=== PATIENT | male | born 1970 | race Caucasian/White ===

== ENCOUNTER 2019-04-04 23:16 | Emergency (ER) | payer MEDICARE, SELFPAY ==
--- NOTE | 2019-04-04 23:18 | W.ED.GENAD ---
Discharge Plan Disposition Patient Disposition: HOME Condition: Good Discharge Details Chief Complaint: Laceration Clinical Impression: Finger laceration Primary Care Provider: Kade Hadley ED Provider: Chelita Caballero Home Meds and New Rx's Prescriptions: Continued atorvastatin [Lipitor] 80 MG tablet 1 tab PO HS RF: 0 aspirin, buffered 325 MG tablet 1 tab PO DAILY RF: 0 citalopram 20 MG tablet 1.5 tab PO DAILY RF: 0 No Action metoprolol tartrate 100 MG tablet 50 mg PO BID RF: 0 lorazepam 0.5 MG tablet 1 tab PO PRN PRNRF: 0 nitroglycerin [Nitrostat] 0.4 MG tablet, sublingual 1 tab Sublingual PRN PRNRF: 0 cyclobenzaprine 10 MG tablet 10 mg PO TID PRN PRN (Reason: Muscle Spasm) Qty: 20 RF: 0 prednisone 20 MG tablet 20 mg PO DAILY Qty: 11 RF: 0 Discharge Instructions Instructions: Finger Laceration (ED), Skin Adhesive Care (ED) Additional Instructions: Keep wound clean, dry, covered. Tylenol and ibuprofen as needed for discomfort. Please allow adhesive to come off naturally. Do not pick or pull at this. Do not apply any ointment over the adhesive. Please monitor for signs of infection including redness, warmth, drainage, increased pain, fever/chills. If these or other new/worsening symptoms arise please seek care urgently once again. Please follow-up with primary care as needed. Referrals: Kade Hadley [Primary Care Provider] - Medical Decision Making Patient is a 48-year-old wdors-odkh-[id number] male presenting today with chief complaint of laceration to the left index finger. He reports a prior to arrival he was opening a bag of popcorn with a knife when he slipped and cut his finger. Has a superficial flap laceration to the distal aspect of the left index finger approximately 8 mm in size. Wound is actively bleeding. The flap itself is pale, I advised that this may not be viable given how thin this is. We discussed options on hemostasis and closure technique. I advised that as the patient edges aligned well, this would close well with adhesive. Tetanus is up-to-date. Patient voices understanding and wishes to proceed. Procedure note: Using standard sterile technique, a tourniquet was used to allow exploration of wound to base in a bloodless field. No foreign body or debris was noted. Wound was copiously irrigated. Flap was then aligned and thin layer of adhesive was applied. Patient tolerated this well. Bleeding had stopped with removal of tourniquet. We discussed wound care in depth. We discussed signs symptoms of infection when to seek care urgently once again. Discussed care of adhesive. All other questions or concerns were addressed and they are in agreement this plan. HPI General Mode of arrival: ambulatory. Limitations to Documentation: no limitations. Information obtained by: patient, family and RN notes reviewed. History of Present Illness 48 year old M presents to the emergency department with the chief complaint of laceration left index finger, described as mild, with intensity rated at 2. Quality is described as aching, and is localized to the left and upper extremity. Patient reports no radiation. Patient started experiencing this minute(s) and it has been constant. No relieving factors improve symptom(s), No exacerbating factors reported . Patient notes no other symptoms.. Patient did receive the following treatments prior to arrival, other (pressure dressing applied) Related Data Home Medications Medication Instructions Recorded Confirmed aspirin, buffered 1 tab PO DAILY 03/27/16 03/22/18 atorvastatin [Lipitor] 1 tab PO HS 03/27/16 03/22/18 citalopram 1.5 tab PO DAILY 03/27/16 03/22/18 lorazepam 1 tab PO PRN PRN 03/27/16 03/22/18 metoprolol tartrate 50 mg PO BID 03/27/16 03/22/18 nitroglycerin [Nitrostat] 1 tab SUBLINGUAL PRN PRN 03/27/16 03/22/18 cyclobenzaprine 10 mg PO TID PRN PRN #20 tab 05/18/16 03/22/18 prednisone 20 mg PO DAILY #11 tablet 03/22/18 Previous Rx's Medication Instructions Recorded cyclobenzaprine 10 mg PO TID PRN PRN #20 tab 05/18/16 prednisone 20 mg PO DAILY #11 tablet 03/22/18 Allergies Allergy/AdvReac Type Severity Reaction Status Date / Time cyclobenzaprine AdvReac Intermediate Psychosis Unverified 04/04/19 23:22 [From Flexeril] hydromorphone HCl AdvReac Unknown Nausea Unverified 04/04/19 23:22 [From Dilaudid] morphine AdvReac Unknown Nausea Unverified 04/04/19 23:22 Review of Systems Constitutional Reports as per HPI, Denies chills and Denies fever(s) Musculoskeletal Reports as per HPI Integumentary/Breasts Reports as per HPI Neurologic Reports as per HPI, Denies sensory deficit and Denies paresthesias [facility] Social History Smoking/Tobacco Use Status: Former Tobacco Use Alcohol Intake: current Drug use: Never Do you feel safe in your relationship?: Yes Exam Const General: cooperative, healthy appearing, comfortable, no acute distress and well developed Nutritional Appearance: average body habitus and well nourished Orientation: alert and awake Resp Effort & Inspection: normal respiratory effort, able to speak in complete sentences and no respiratory distress Cardio Rate: regular rate Rhythm: regular rhythm Skin Trauma: laceration (superficial flap laceration left index finger, active bleeding) Neuro General: alert and awake Cognition: normal cognition Speech: speech normal Gait: normal gait Sensory Exam: no sensory deficits noted Extrem Left upper extremity: abnormal to inspection (laceration as above. 8mm flap) Psych Appearance: grossly normal and well kempt Mental Status: mental status grossly normal Speech and Movement: speech and movement normal
[2019-04-04 23:20] VITALS: BP 148/88; PULSE 59; RESP 18; TEMP 36.6; O2SAT 96
--- NOTE | 2019-04-04 23:47 | ED.GENADUL_ITS ---
Discharge Plan Disposition Patient Disposition: HOME Condition: Good Discharge Details Chief Complaint: Laceration Clinical Impression: Finger laceration Primary Care Provider: Kade Hadley ED Provider: Chelita Caballero Home Meds and New Rx's Prescriptions: Continued atorvastatin [Lipitor] 80 MG tablet 1 tab PO HS RF: 0 aspirin, buffered 325 MG tablet 1 tab PO DAILY RF: 0 citalopram 20 MG tablet 1.5 tab PO DAILY RF: 0 No Action metoprolol tartrate 100 MG tablet 50 mg PO BID RF: 0 lorazepam 0.5 MG tablet 1 tab PO PRN PRNRF: 0 nitroglycerin [Nitrostat] 0.4 MG tablet, sublingual 1 tab Sublingual PRN PRNRF: 0 cyclobenzaprine 10 MG tablet 10 mg PO TID PRN PRN (Reason: Muscle Spasm) Qty: 20 RF: 0 prednisone 20 MG tablet 20 mg PO DAILY Qty: 11 RF: 0 Discharge Instructions Instructions: Finger Laceration (ED), Skin Adhesive Care (ED) Additional Instructions: Keep wound clean, dry, covered. Tylenol and ibuprofen as needed for discomfort. Please allow adhesive to come off naturally. Do not pick or pull at this. Do not apply any ointment over the adhesive. Please monitor for signs of infection including redness, warmth, drainage, increased pain, fever/chills. If these or other new/worsening symptoms arise please seek care urgently once again. Please follow-up with primary care as needed. Referrals: Kade Hadley [Primary Care Provider] - Medical Decision Making Patient is a 48-year-old hfxot-niaw-opaioeql male presenting today with chief complaint of laceration to the left index finger. He reports a prior to arrival he was opening a bag of popcorn with a knife when he slipped and cut his finger. Has a superficial flap laceration to the distal aspect of the left index finger approximately 8 mm in size. Wound is actively bleeding. The flap itself is pale, I advised that this may not be viable given how thin this is. We discussed options on hemostasis and closure technique. I advised that as the patient edges aligned well, this would close well with adhesive. Tetanus is up-to-date. Patient voices understanding and wishes to proceed. Procedure note: Using standard sterile technique, a tourniquet was used to allow exploration of wound to base in a bloodless field. No foreign body or debris was noted. Wound was copiously irrigated. Flap was then aligned and thin layer of adhesive was applied. Patient tolerated this well. Bleeding had stopped with removal of tourniquet. We discussed wound care in depth. We discussed signs symptoms of infection when to seek care urgently once again. Discussed care of adhesive. All other questions or concerns were addressed and they are in agreement this plan. HPI General Mode of arrival: ambulatory . Limitations to Documentation: no limitations . Information obtained by: patient, family and RN notes reviewed . History of Present Illness 48 year old M presents to the emergency department with the chief complaint of laceration left index finger, described as mild, with intensity rated at 2. Quality is described as aching, and is localized to the left and upper extremity. Patient reports no radiation. Patient started experiencing this minute(s) and it has been constant. No relieving factors improve symptom(s), No exacerbating factors reported . Patient notes no other symptoms.. Patient did receive the following treatments prior to arrival, other (pressure dressing applied) Related Data Home Medications Medication Instructions Recorded Confirmed aspirin, buffered 1 tab PO DAILY 03/27/16 03/22/18 atorvastatin [Lipitor] 1 tab PO HS 03/27/16 03/22/18 citalopram 1.5 tab PO DAILY 03/27/16 03/22/18 lorazepam 1 tab PO PRN PRN 03/27/16 03/22/18 metoprolol tartrate 50 mg PO BID 03/27/16 03/22/18 nitroglycerin [Nitrostat] 1 tab SUBLINGUAL PRN PRN 03/27/16 03/22/18 cyclobenzaprine 10 mg PO TID PRN PRN #20 tab 05/18/16 03/22/18 prednisone 20 mg PO DAILY #11 tablet 03/22/18 Previous Rx's Medication Instructions Recorded cyclobenzaprine 10 mg PO TID PRN PRN #20 tab 05/18/16 prednisone 20 mg PO DAILY #11 tablet 03/22/18 Allergies Allergy/AdvReac Type Severity Reaction Status Date / Time cyclobenzaprine AdvReac Intermediate Psychosis Unverified 04/04/19 23:22 [From Flexeril] hydromorphone HCl AdvReac Unknown Nausea Unverified 04/04/19 23:22 [From Dilaudid] morphine AdvReac Unknown Nausea Unverified 04/04/19 23:22 Review of Systems Constitutional Reports as per HPI, Denies chills and Denies fever(s) Musculoskeletal Reports as per HPI Integumentary/Breasts Reports as per HPI Neurologic Reports as per HPI, Denies sensory deficit and Denies paresthesias [facility] Social History Smoking/Tobacco Use Status: Former Tobacco Use Alcohol Intake: current Drug use: Never Do you feel safe in your relationship?: Yes Exam Const General: cooperative, healthy appearing, comfortable, no acute distress and well developed Nutritional Appearance: average body habitus and well nourished Orientation: alert and awake Resp Effort & Inspection: normal respiratory effort, able to speak in complete sentences and no respiratory distress Cardio Rate: regular rate Rhythm: regular rhythm Skin Trauma: laceration (superficial flap laceration left index finger, active bleed ing) Neuro General: alert and awake Cognition: normal cognition Speech: speech normal Gait: normal gait Sensory Exam: no sensory deficits noted Extrem Left upper extremity: abnormal to inspection (laceration as above. 8mm flap) Psych Appearance: grossly normal and well kempt Mental Status: mental status grossly normal Speech and Movement: speech and movement normal
== END 2019-04-04 23:51 | disposition home or self-care (01) ==
LOC: ER 23:53
PROVIDERS: Emergency Provider Physician Assistant; PCP Family Medicine
DX: S61.211A Laceration without foreign body of left index finger without damage to nail, initial encounter (principal); W26.0XXA Contact with knife, initial encounter
CPT/HCPCS: 12001

== ENCOUNTER 2021-05-15 19:51 | Emergency (ER) | payer OTHER, MEDICARE, SELFPAY ==
[2021-05-15 19:59] VITALS: BP 154/106; PULSE 98; RESP 16; TEMP 36.8; O2SAT 97
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
[2021-05-15] MEDS: oxyCODONE 5 mg/Acetaminophen 325 mg TAB 1 TAB PO (20:27)
[2021-05-15] MEDS: Ondansetron O.D.T. 4 MG TABEF PO (20:27)
[2021-05-15 20:29] LABS: Abs Immature Grans 0.04 10^3/uL (0.0-0.06); Absolute Eosinophil Count 0.14 10^3/uL (0.0-0.7); Absolute Lymphocyte Count 1.63 10^3/uL (1.2-3.4); Absolute Monocyte Count 0.99 10^3/uL (0.1-0.8); Absolute Neutrophil Count 9.03 10^3/uL (1.2-6.7); Basophils % 0.8; Eosinophils % 1.2; HCT 43.9 % (40.0-50.0); Immature Grans % 0.3; Lymphocytes % 13.7; MCH 30.6 pg (27.0-33.0); MCHC 34.2 % (32.0-36.0); MCV 89.6 fL (80-95); MPV 10.2 fL (8.0-11.0); Monocytes % 8.3; Neutrophils % 75.7; Nucleated RBC 0 %; Platelet Count 279 10^3/uL (130-400); RDW 12.1 % (11.8-14.1); RDW-SD 39.8 fL; WBC 11.93 10^3/uL (4.4-10.8)
[2021-05-15 20:39] LABS: Lipase 87 U/L (73-393)
[2021-05-15 20:40] LABS: Bilirubin Negative (Negative); Blood Negative (Negative); Clarity Clear (Clear); Glucose Negative (Negative); Ketones Negative (Negative); Leukocyte Esterase Negative (Negative); Nitrite Negative (Negative); Specific Gravity >= 1.030 (1.005-1.025)
[2021-05-15 20:42] LABS: ALT 50 U/L (16-63); AST 27 U/L (15-37); Albumin 4.2 g/dL (3.4-5.0); Alkaline Phosphatase 96 U/L (46-116); Anion Gap 12.6 mmol/L (3-11); BUN 15 mg/dL (7-18); Bilirubin, Total 0.6 mg/dL (0.2-1.0); CO2 24.4 mmol/L (21.0-32.0); CREATININE 1.1 mg/dL (0.70-1.30); Calcium 8.9 mg/dL (8.5-10.1); Chloride 105 mmol/L (98-107); Glucose 138 mg/dL (74-106); Magnesium 1.9 mg/dL (1.8-2.4); Potassium 3.5 mmol/L (3.5-5.1); Sodium 142 mmol/L (136-145); Total Protein 7.7 g/dL (6.4-8.2)
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
[2021-05-15 21:39] VITALS: BP 139/87; PULSE 97; RESP 16; TEMP 36.8; O2SAT 95
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
[2021-05-15] MEDS: Omnipaque 350 MG/ML 100 ML BTL IJ (21:55)
[2021-05-15] MEDS: Normal Saline - Diluent 50 ML VIAL IV (21:56)
[2021-05-15] MEDS: Normal Saline Flush 10 ML SYR IVP (21:56)
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
[2021-05-15] MEDS: oxyCODONE 5 mg/Acetaminophen 325 mg TAB 2 TAB PO (22:33)
== END 2021-05-15 22:35 | disposition home or self-care (01) ==
PROVIDERS: Emergency Provider Registered Nurse Emergency; PCP Family Medicine
DX: R10.11 Right upper quadrant pain (principal); R51.9 Headache, unspecified; V43.52XA Car driver injured in collision with other type car in traffic accident, initial encounter
CPT/HCPCS: 74177; 80053; 83690; 99284; 70450; 71260; 72125; 81003; 83735; 85025; J3490

== ENCOUNTER 2021-06-12 16:16 | Emergency (ER) | payer OTHER, MEDICARE, SELFPAY ==
[2021-06-12 16:20] VITALS: BP 133/78; PULSE 60; RESP 16; TEMP 36.5; O2SAT 97
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
--- NOTE | 2021-06-12 16:45 | DI.CT_ITS ---
Exam(s) CT BRAIN NECK CTA EXAM: CT BRAIN NECK CTA CLINICAL HISTORY: Left side neck swelling/pain. TECHNIQUE: Imaging Protocol: Axial CT angiography was performed with multi-slice acquisition and mu lti-planar and/or 3D reconstructions. CONTRAST MATERIAL: Intravenous: Omnipaque 350 Contrast volume:structured data in ml COMPARISON: CT CT THORACIC LUMBAR SPINE REC from 05/15/2021 FINDINGS: CT angiography of the cervical cranial region was performed according to the usual protocol with intr avenous infusion of 85 cc of Omnipaque 350.. Initial noncontrast scanning of the head is unremarkable. Visualized lung apices are clear. Visualized portions of thoracic aorta and pulmonary arterial circul ation are unremarkable. There is no evidence of a cervical mass or adenopathy. The tracheal laryngeal structures appear intact. The common, internal, and external carotid arteries are within normal limits in the cervical region w ith no evidence of aneurysm, stenosis, or dissection, except for mild calcified atheromatous plaque a t the carotid bifurcations bilaterally without significant stenosis in excess of 50 percent of the courtney macarena diameter.. The vertebral arteries are unremarkable in appearance in the cervical region with no evidence of aneu rysm, stenosis, or dissection. There is right dominant vertebral circulation. Intracranial portions of the internal carotid arteries appear normal with no evidence of aneurysm, st enosis, or dissection. Intracranial vertebral arteries and basilar artery appear normal with no evidence of aneurysm, stenos is or dissection. No aneurysm identified in the region of the [id number]. The anterior, middle, and posterior cer ebral arteries and major branches appear intact with no evidence of aneurysm, stenosis, or dissection . No enhancing brain lesion identified. 5 minutes delayed post contrast images of the brain show no evidence of a mass lesion or enhancing le matias. IMPRESSION: Mild atheromatous disease of the carotid bifurcations. No hemodynamically significant stenosis or ot her significant vascular lesion identified. No acute intracranial abnormality seen. RADIATION DOSE DELIVERED: 2,335.95mGy.cmTotal DLP 2,335.95mGy.cm Total DLP CTDIvol DATA REPOSITORY: All CT scans at this facility are submitted to the National Radiology Data Registry (NRDR) Dose Index Registry (DIR) with the [employer] (ACR). RADIATION OPTIMIZATION: All CT scans at this facility use at least one of these dose optimization te chniques: automated exposure control; mA and/or kV adjustment per patient size (includes targeted exa ms where dose is matched to clinical indication); or iterative reconstruction.
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
[2021-06-12 17:18] LABS: Abs Immature Grans 0.04 10^3/uL (0.0-0.06); Absolute Basophil Count 0.11 10^3/uL (0.0-0.2); Absolute Eosinophil Count 0.28 10^3/uL (0.0-0.7); Absolute Lymphocyte Count 1.66 10^3/uL (1.2-3.4); Absolute Monocyte Count 0.95 10^3/uL (0.1-0.8); Absolute Neutrophil Count 6.52 10^3/uL (1.2-6.7); Basophils % 1.2; Eosinophils % 2.9; HCT 43.2 % (40.0-50.0); HGB 14.7 g/dL (13.5-17.5); Immature Grans % 0.4; Lymphocytes % 17.4; MCH 30.2 pg (27.0-33.0); MCV 88.7 fL (80-95); MPV 10.1 fL (8.0-11.0); Monocytes % 9.9; Neutrophils % 68.2; Nucleated RBC 0 %; Platelet Count 233 10^3/uL (130-400); RBC 4.87 10^6/uL (4.36-5.78); RDW 12.2 % (11.8-14.1); RDW-SD 39.7 fL; WBC 9.56 10^3/uL (4.4-10.8)
[2021-06-12 17:29] LABS: ALT 45 U/L (16-63); AST 21 U/L (15-37); Albumin 3.9 g/dL (3.4-5.0); Alkaline Phosphatase 88 U/L (46-116); Anion Gap 9.1 mmol/L (3-11); BUN 10 mg/dL (7-18); Bilirubin, Total 0.5 mg/dL (0.2-1.0); CO2 26.9 mmol/L (21.0-32.0); CREATININE 0.7 mg/dL (0.70-1.30); Calcium 8.3 mg/dL (8.5-10.1); Chloride 105 mmol/L (98-107); Glucose 82 mg/dL (74-106); Potassium 3.6 mmol/L (3.5-5.1); Sodium 141 mmol/L (136-145); Total Protein 7.2 g/dL (6.4-8.2)
[2021-06-12] MEDS: Omnipaque 350 MG/ML 100 ML BTL IJ (17:39)
[2021-06-12] MEDS: Normal Saline - Diluent 50 ML VIAL IV (17:39)
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
== END 2021-06-12 18:40 | disposition home or self-care (01) ==
PROVIDERS: Emergency Provider Registered Nurse Emergency; PCP Nurse Practitioner Family
DX: M25.532 Pain in left wrist (principal); M25.531 Pain in right wrist; S16.1XXD Strain of muscle, fascia and tendon at neck level, subsequent encounter; V49.88XD Car occupant (driver) (passenger) injured in other specified transport accidents, subsequent encounter
CPT/HCPCS: 36415; 70496; 70498; 80053; 99285; 73110; 85025; 99284; J3490

== ENCOUNTER 2022-11-18 14:35 | Outpatient (REF) | payer MEDICARE, SELFPAY ==
[2022-11-18 15:55] LABS: Anion Gap 8.1 mmol/L (3-11); BUN 14 mg/dL (7-18); CO2 24.9 mmol/L (21.0-32.0); CREATININE 0.8 mg/dL (0.70-1.30); Calcium 8.5 mg/dL (8.5-10.1); Calculated LDL 50 mg/dL (<100); Chloride 105 mmol/L (98-107); Cholesterol 106 mg/dL (<200); Estimated GFR 105.17 (mL/min/1.73m2); Glucose 125 mg/dL (74-106); HDL Cholesterol 41 mg/dL (40-60); Potassium 3.8 mmol/L (3.5-5.1); Sodium 138 mmol/L (136-145); Triglyceride 79 mg/dL (<150)
== END 2022-11-18 14:36 | disposition home or self-care (01) ==
LOC: NCHCN 14:35
PROVIDERS: PCP Nurse Practitioner Family; Visit Provider Nurse Practitioner Family
DX: I10 Essential (primary) hypertension (principal); E78.00 Pure hypercholesterolemia, unspecified
CPT/HCPCS: 80048; 80061

== ENCOUNTER 2024-07-03 01:33 | Outpatient (CLI) | payer MEDICARE, SELFPAY ==
--- NOTE | 2024-07-03 | DI.US_ITS ---
Exam(s) US SOFT TISS ABD WALL/LOW BACK EXAM: US SOFT TISS ABD WALL/LOW BACK CLINICAL HISTORY: LLQ PAIN,? ABDOMINAL WALL HERNIA,R10.32. TECHNIQUE: Ultrasound was performed using standard protocol. COMPARISON: CT CT CHEST/ABD/PEL W from 05/15/2021 FINDINGS: Sonographic assessment utilizing grayscale and color Doppler imaging was performed and targeted to th e area of clinical concern. No hernia, mass or fluid collection is demonstrated. IMPRESSION: No abnormalities demonstrated in the abdominal wall. DATA REPOSITORY:
== END 2024-07-03 01:53 ==
LOC: DI 01:33
PROVIDERS: Visit Provider Nurse Practitioner Family
DX: R10.32 Left lower quadrant pain (principal)
CPT/HCPCS: 76705

== ENCOUNTER 2025-06-03 14:19 | Outpatient (REF) | payer MEDICARE, SELFPAY ==
[2025-06-03 16:13] LABS: HCT 43.0 % (40.0-50.0); HGB 14.8 g/dL (13.5-17.5); MCH 30.3 pg (27.0-33.0); MCHC 34.4 % (32.0-36.0); MCV 88 fL (80-95); MPV 10.6 fL (8.0-11.0); Platelet Count 263 10^3/uL (130-400); RBC 4.89 10^6/uL (4.36-5.78); RDW 12.8 % (11.8-14.1); RDW-SD 41.1 fL; WBC 6.86 10^3/uL (4.4-10.8)
[2025-06-03 16:40] LABS: ALT 52 U/L (16-63); AST 25 U/L (15-37); Albumin 3.9 g/dL (3.4-5.0); Alkaline Phosphatase 123 U/L (46-116); Anion Gap 8.9 mmol/L (3-11); BUN 10 mg/dL (7-18); Bilirubin, Total 0.5 mg/dL (0.2-1.0); CO2 24.1 mmol/L (21.0-32.0); Calcium 8.6 mg/dL (8.5-10.1); Calculated LDL 47 mg/dL (<100); Chloride 106 mmol/L (98-107); Cholesterol 99 mg/dL (<200); Estimated GFR 113.29 (mL/min/1.73m2); Glucose 149 mg/dL (74-106); HDL Cholesterol 37 mg/dL (>or=40); Potassium 3.9 mmol/L (3.5-5.1); Sodium 139 mmol/L (136-145); Total Protein 7.0 g/dL (6.4-8.2); Triglyceride 78 mg/dL (<150)
[2025-06-03 22:52] LABS: PSA, Screening 1.2 ng/mL (<=3.5)
== END 2025-06-03 14:20 | disposition home or self-care (01) ==
LOC: NCHCN 14:19
PROVIDERS: PCP Nurse Practitioner Family; Visit Provider Nurse Practitioner Family
DX: I10 Essential (primary) hypertension (principal); K21.9 Gastro-esophageal reflux disease without esophagitis; N40.0 Benign prostatic hyperplasia without lower urinary tract symptoms; Z12.5 Encounter for screening for malignant neoplasm of prostate; E78.00 Pure hypercholesterolemia, unspecified
CPT/HCPCS: 80053; 80061; 84153; 85027